=== PATIENT | female | born 1935 | race American Indian/Alaskan Native ===

== ENCOUNTER 2020-01-21 19:28 | Emergency (ER) | payer MEDICARE ==
--- NOTE | 2020-01-21 20:53 | Emergency Department Report ---
HPI - General Chief Complaint: Altered Mental Status Time Seen by Provider: 01/21/20 20:11 - HPI HPI: 84-year-old -[place] female presents to the emergency department from home via EMS after the daughter felt that the patient was having some altered mental status. She finished her home physical therapy appointment and the patient was eating dinner. The daughter says that she was not eating much and she seemed less responsive and was talking less. The daughter said to her "if you do not respond to me I am going to call 911" and then the patient thought she was in agreement with this. EMS arrived and found the patient to have some low blood pressure, 80/50. The patient appeared to go back to her normal responsiveness upon EMS arrival and asked why she was being transported to the hospital. During my examination the patient says that she last remembers watching television prior to dinner. However she says that she does not want to be here and wants to go home. The patient has no complaints at this time. She is currently AAO x2-3. Patient does have a history of dementia. She also has a history of diabetes and was here about 1 month ago for DKA. She had a blood sugar of 180 via Accu-Chek in route. Patient has a history of hypertension for which she is on Benicar. ED Past Medical Hx - Past Medical History Previous Medical History?: Yes Hx Heart Attack/AMI: Yes (has stents??) Hx Diabetes: Yes Hx Kidney Stones: Yes (ckd) Hx Dementia: Yes (early stages Alzheimers) - Surgical History Past Surgical History?: Yes Additional Surgical History: Double hip replacement - Social History Smoking Status: Never Smoker Substance Use Type: None - Medications Home Medications: Home Medications Medication Instructions Recorded Confirmed Last Taken Type AtorvaSTATin 40 mg PO DAILY 12/23/19 12/23/19 Unknown History Eliquis 1 mg PO DAILY 12/23/19 12/23/19 Unknown History Gabapentin 300 mg PO TID 12/23/19 12/23/19 Unknown History Glimepiride 4 mg PO BID 12/23/19 12/23/19 Unknown History Isosorbide Mononitrate 30 mg PO DAILY 12/23/19 12/23/19 Unknown History Januvia 50 mg PO DAILY 12/23/19 12/23/19 Unknown History carvediloL 6.25 mg PO BID 12/23/19 12/23/19 Unknown History metFORMIN [Glucophage] 500 mg PO BID #60 tablet 12/26/19 Unknown Rx Blood Pressure Test Kit-Large 1 each PRN PRN #1 kit 01/21/20 Unknown Rx [Blood Pressure Monitor] ED Review of Systems ROS: Stated complaint: AMS Other details as noted in HPI Comment: All other systems reviewed and negative Constitutional: denies: chills, fever Eyes: denies: eye pain, vision change ENT: denies: ear pain, throat pain Respiratory: denies: cough, shortness of breath Cardiovascular: denies: chest pain, palpitations Gastrointestinal: denies: abdominal pain, vomiting Genitourinary: denies: dysuria, discharge Musculoskeletal: denies: back pain, arthralgia Skin: denies: rash, lesions Neurological: denies: headache, numbness Physical Exam - Physical Exam Vital Signs: Vital Signs 01/21/20 19:39 Pulse Rate 87 Respiratory 14 Rate Blood Pressure 187/83 [left arm] O2 Sat by Pulse 95 Oximetry Physical Exam: GENERAL: The patient is well-developed well-nourished. HENT: Normocephalic. Atraumatic. Patient has moist mucous membranes. EYES: Extraocular motions are intact. Pupils equal reactive to light bilaterally. NECK: Supple. Trachea is midline. CHEST/LUNGS: Clear to auscultation. There is no respiratory distress noted. HEART/CARDIOVASCULAR: Regular. There is no tachycardia. ABDOMEN: Abdomen is soft, nontender. Patient has normal bowel sounds. There is no abdominal distention. SKIN: Skin is warm and dry. NEURO: The patient is awake, alert. Cranial nerves II through XII grossly intact. Normal speech. No pronator drift. MUSCULOSKELETAL: There is no tenderness or deformity. There is no evidence of acute injury. ED Course Vital Signs 01/21/20 19:39 Pulse Rate 87 Respiratory 14 Rate Blood Pressure 187/83 [left arm] O2 Sat by Pulse 95 Oximetry - Reevaluation(s) Reevaluation #1: 01/21/20 20:54 I had a very long conversation with the patient's daughter, whose name is also Dali. The daughter explained to me what happened prior to arrival and the reason for calling EMS. I explained to the patient's daughter that the patient is refusing any cardiac monitoring, EKG, blood draw, imaging, essentially any testing whatsoever. I also explained that if we were to try and get some of this testing completed, that the patient would need some type of chemical sedation. The patient's daughter says that she does not want the patient to receive any chemical sedation or any medication at this time. I discussed some possible differential diagnosis that could have caused this patient's symptoms including worsening of her dementia, TIA/CVA, electrolyte abnormalities, dysrhythmia. The daughter understands but says that she would prefer that the patient just be discharged home instead of undergoing sedation and testing at this time. The patient will be sent back to her daughter's house, and the daughter understands that if there is any change or any concern that she should once again call 911 and get her to the closest emergency department. ED Medical Decision Making - Medical Decision Making This patient was brought in for an evaluation after she appeared to have some type of transient altered mental status or an unresponsive episode, but the patient never lost consciousness. Since being in the emergency department the patient has been awake and alert. She is AAO x2-3 as she is oriented to person, place and the year, but not the month. The patient does have a history of dementia. The patient had an Accu-Chek done in route with EMS that was about 180. Otherwise, when she arrived in the emergency department, the patient is unwilling to have blood drawn, remain on the monitor, have an EKG done, or essentially allow any testing. Her vital signs were stable upon arrival including being afebrile. I spoke with the patient's daughter regarding the patient being uncooperative. The daughter understands that if we were going to get any testing done, then it would require chemical sedation. The daughter does not want us to do this and would prefer for the patient to return home. The daughter does understand that I am unable to give her any definitive diagnosis or explain why she had the transient altered mental status or unresponsive episode without the testing being done. The daughter is in agreement with this plan. She also agrees that she will call 911, or return the patient to the closest emergency department, if there is any further changes or signs of acute distress. The patient herself has repeatedly said that she wants to be discharged home. The patient was seen ambulatory with a walker and says that she feels stable and is at her baseline ability. Critical Care Time: No Critical care attestation.: If time is entered above; I have spent that time in minutes in the direct care of this critically ill patient, excluding procedure time. ED Disposition Clinical Impression: History of dementia, Elevated blood pressure reading, Unresponsive episode Disposition: DC-01 TO HOME OR SELFCARE Is pt being admited?: No Condition: Stable Instructions: Hypertension (ED) Additional Instructions: Please follow-up with a primary care physician in the next few days. Monitor her blood pressure multiple times per day. Please call 911 and return to the closest emergency department with any change in mental status, unresponsive episodes, development of chest pain or shortness of breath, or with any acute distress. Prescriptions: Blood Pressure Test Kit-Large [Blood Pressure Monitor] 1 each MC PRN PRN #1 kit PRN Reason: Blood Pressure Referrals: SINTIA HILL MD [Staff Physician] - 2-3 Days SHELDON TEE MD [Staff Physician] - 2-3 Days Time of Disposition: 20:59
[2020-01-21 22:43] VITALS: BP 191/78
== END 2020-01-21 23:23 | disposition home or self-care (01) ==
LOC: ED 19:28
DX: R03.0 Elevated blood-pressure reading, without diagnosis of hypertension (principal); F03.90 Unspecified dementia, unspecified severity, without behavioral disturbance, psychotic disturbance, mood disturbance, and anxiety; E11.22 Type 2 diabetes mellitus with diabetic chronic kidney disease; N18.9 Chronic kidney disease, unspecified; I25.2 Old myocardial infarction; Z95.5 Presence of coronary angioplasty implant and graft; Z79.899 Other long term (current) drug therapy; Z98.890 Other specified postprocedural states

== ENCOUNTER 2020-03-04 08:13 | Observation (INO) | payer MEDICARE ==
[2020-03-04] MEDS ORDERED: DEXTROSE 50% IN WATER (25GM) 50 ML SYRINGE IV ONE ×2 (08:42→10:02)
--- NOTE | 2020-03-04 08:51 | Emergency Department Report ---
ED Neuro Deficit HPI - General Chief Complaint: Altered Mental Status Stated Complaint: WEAKNESS Time Seen by Provider: 03/04/20 08:19 Source: family, EMS Mode of arrival: Stretcher - History of Present Illness Initial Comments: [facility] TeleStroke Metrics: LKW: 0000 Door Time: 0813 [facility] Contacted: 0821 [facility] at Bedside: 0825 NIHSS: 0833 Decision on Alteplase: Not to give as her last known well time is greater than 4.5 hours prior to her presentation. Interventional Candidate: Not a candidate as her symptoms are not consistent with a large vessel proximal occlusion. Chief Complaint: Altered mental status and hypoglycemia HPI: Asked to see this patient in emergent telemedicine consultation utilizing interactive audio and video technologies. Consultation was performed with assistance of ancillary / medical staff at bedside. Verbal consent to perform the examination with telemedicine was obtained. Killian hwang agreed to proceed with the consultation for acute stroke protocol. 84-year-old right-handed -[place]ien female who comes to the emergency room by EMS as a stroke alert for altered mental status and unresponsiveness. Patient's daughter is at bedside. Daughter states that the patient had a stroke about 2 years ago but she does not remember what her symptoms were. Patient also has a history of coronary stents. However, daughter states the patient is not on any aspirin or blood thinners currently. Patient normally lives in [place] with her . She apparently in November 2019 had an admission for diabetic coma where her blood sugar was greater than 600. Patient has been staying with her daughter since her November admission. Patient normally ambulates with a walker or cane at baseline. Patient went to bed around midnight at her baseline. At 6:30 AM, daughter had found the patient in her bed kicking her feet and making odd noises. She was not responding to her at all. She checked her blood sugar, and it was less than 30. EMS was called. They gave her an amp of D50. Her blood sugar improved to around 132. Currently on examination, the patient is awake but is slow to respond. She is able to tell us her name and date of . She recognizes her daughter at bedside. She is globally weak mostly in her legs. Head CT showed no acute findings. Repeat blood sugar in the emergency room is back down to 61. Daughter did mention that the patient has had low blood sugars over the last 1 week. Patient is complaining of being very cold. PMH: Diabetes mellitus, hypertension, coronary artery disease with prior coronary stents, and a prior stroke 2 years ago SOC: Negative x3. Patient is and typically lives with her in [place]. She has been living with her daughter since her November 2019 admission for DKA. She ambulates with a walker or cane at baseline. FMH: Other daughter with a stroke before. ROS: 13 point review of systems were reviewed with the patient and family, and are all negative with the exception of the aforementioned in the history of present illness. VS: Temperature 97.9 F, blood pressure 191/87, oxygen saturation 100% Exam: Patient is in no apparent distress. Patient appears as stated age. No obvious acute respiratory or cardiac distress. Patient is well groomed and well-nourished. 1a- LOC: Keenly responsive - 0 1b- LOC questions: Answers both questions correctly - 0 1c- LOC commands- Performs both tasks correctly- 0 2- Gaze: Normal; no gaze paresis or gaze deviation - 0 3- Visual Garcia: normal, no Visual field deficit - 0 4- Facial movements: no facial palsy - 0 5- Upper limb motor bilateral arm drifts - 2 6- Lower limb motor bilateral leg drifts - 6 7- Limb Coordination: absent ataxia - 0 8- Sensory: no sensory loss - 0 9- Language - No aphasia - 0 10- Speech - Mild dysarthria - 1 11- Neglect / Extinction - none found - 0 NIHSS score: 9 Diagnostic Data: CT head showed no acute intracranial hemorrhage, mass, or large territory stroke. Initial EMS blood sugar was 132. Repeat blood sugar in the emergency room is 61. Medical Data Reviewed: 1.Data reviewed include clinical labs, radiology, and medical tests; 2.Tests results discussed w/performing or interpreting physician; 3.Obtaining/reviewing old medical records; 4.Obtaining case history from another source; 5.Independent review of image, tracing, or specimen. Medical Decision Making: - Extensive number of diagnosis or management options are considered below. - Extensive amount of complex data reviewed. - High risk of complication and/or morbidity or mortality are associated with differential diagnostic considerations below. - There may be?uncertain?outcome and increased probability of prolonged functional impairment or high probability of severe prolonged functional impairment associated with some of these differential diagnosis. Differential Diagnosis for Stroke: 1.?Cardioembolic?stroke 2. Small vessel disease/lacune 3. Thromboembolic, [id number] mechanism 4.?Hypercoagulable?state-related infarct 5. Transient ischemic attack 6. Thrombotic mechanism, large artery disease Assessment: 1. Acute metabolic encephalopathy likely due to persistent hypoglycemia 2. Diabetes mellitus 3. Hypertension 4. Prior stroke 2 years ago 5. Coronary artery disease with prior coronary stents Recommendations: Patient can be admitted to the hospital for further work-up of her symptoms. Metabolic and infectious work-up per primary team. Start the patient on a baby aspirin given her cardiac and stroke histories. If the patient does not improve within the next 24 hours, then can check MRI brain without contrast to rule out any acute intracranial process. Maintain the patient on telemetry to look for paroxysmal atrial fibrillation. Check echocardiogram to gauge her cardiac function. Check carotid ultrasound. Check hemoglobin A1c and lipid panel. Consult PT, OT, and ST. Continue supportive care. Plan of care was discussed with the patient's daughter. Thank you for allowing [facility] to participate in the care of your patient. Please call me, Dr. Cintron, with any questions at [phone]. Case discussed with the ER staff and Dr. Mancilla. Critical Care notation: I was called to see this critical patient emergently. I personally evaluated this critical patient for acute stroke evaluation, and determining their eligibility for IV Alteplase and interventional therapies. I have spent approximately 13 minutes with the patient, including time at bedside, time discussing the case with other physicians, reviewing plan of care, and time independently reviewing the records and scans. - Related Data Home Medications: Home Medications Medication Instructions Recorded Confirmed Last Taken AtorvaSTATin 40 mg PO DAILY 12/23/19 12/23/19 Unknown Eliquis 1 mg PO DAILY 12/23/19 12/23/19 Unknown Gabapentin 300 mg PO TID 12/23/19 12/23/19 Unknown Glimepiride 4 mg PO BID 12/23/19 12/23/19 Unknown Isosorbide Mononitrate 30 mg PO DAILY 12/23/19 12/23/19 Unknown Januvia 50 mg PO DAILY 12/23/19 12/23/19 Unknown carvediloL 6.25 mg PO BID 12/23/19 12/23/19 Unknown Previous Rx's Medication Instructions Recorded Last Taken Type metFORMIN [Glucophage] 500 mg PO BID #60 tablet 12/26/19 Unknown Rx Blood Pressure Test Kit-Large 1 each PRN PRN #1 kit 01/21/20 Unknown Rx [Blood Pressure Monitor] Allergies/Adverse Reactions: Allergies Allergy/AdvReac Type Severity Reaction Status Date / Time No Known Drug Allergies Allergy Unknown Verified 12/22/19 23:03 ED Review of Systems ROS: Stated complaint: WEAKNESS Other details as noted in HPI ED Past Medical Hx - Past Medical History Hx Heart Attack/AMI: Yes (has stents??) Hx Diabetes: Yes Hx Kidney Stones: Yes (ckd) Hx Dementia: Yes (early stages Alzheimers) - Surgical History Additional Surgical History: Double hip replacement - Social History Smoking Status: Never Smoker Substance Use Type: None - Medications Home Medications: Home Medications Medication Instructions Recorded Confirmed Last Taken Type AtorvaSTATin 40 mg PO DAILY 12/23/19 12/23/19 Unknown History Eliquis 1 mg PO DAILY 12/23/19 12/23/19 Unknown History Gabapentin 300 mg PO TID 12/23/19 12/23/19 Unknown History Glimepiride 4 mg PO BID 12/23/19 12/23/19 Unknown History Isosorbide Mononitrate 30 mg PO DAILY 12/23/19 12/23/19 Unknown History Januvia 50 mg PO DAILY 12/23/19 12/23/19 Unknown History carvediloL 6.25 mg PO BID 12/23/19 12/23/19 Unknown History metFORMIN [Glucophage] 500 mg PO BID #60 tablet 12/26/19 Unknown Rx Blood Pressure Test Kit-Large 1 each PRN PRN #1 kit 01/21/20 Unknown Rx [Blood Pressure Monitor] ED Neuro Physical Exam - General Suspected Stroke: No Critical care attestation.: If time is entered above; I have spent that time in minutes in the direct care of this critically ill patient, excluding procedure time. ED Disposition Clinical Impression: Acute metabolic encephalopathy Disposition: OP ADMIT IP TO THIS HOSP Is pt being admited?: Yes Does the pt Need Aspirin: Yes Condition: Stable Referrals: PRIMARY CARE, [Primary Care Provider] - 3-5 Days
[2020-03-04 10:27] LABS: Free T4 (Free Thyroxine) 0.97 ng/dL (0.76-1.46)
[2020-03-04 10:47] LABS: Basophils % (Auto) 0.6 % (0.0-1.8); Eosinophils # (Auto) 0.2 K/mm3 (0.0-0.4); Eosinophils % (Auto) 3.6 % (0.0-4.3); Hematocrit 31.6 % (30.3-42.9); Hemoglobin 10.4 gm/dl (10.1-14.3); Lymphocytes # (Auto) 1.5 K/mm3 (1.2-5.4); Lymphocytes % (Auto) 29.5 % (13.4-35.0); Mean Corpuscular HGB Conc 33 % (30-34); Mean Corpuscular Volume 92 fl (79-97); Monocytes # (Auto) 0.4 K/mm3 (0.0-0.8); Platelet Count 193 K/mm3 (140-440); Red Blood Count 3.43 M/mm3 (3.65-5.03); Red Cell Distribution Width 18.3 % (13.2-15.2)
[2020-03-04 10:57] LABS: INR 1.32 (0.87-1.13)
[2020-03-04 10:58] LABS: Partial Thromboplastin Time 28.2 Sec. (24.2-36.6)
[2020-03-04 11:12] LABS: Creatine Kinase MB 1.5 ng/mL (0.0-4.0)
[2020-03-04 11:13] LABS: Albumin 3.1 g/dL (3.9-5); Calcium 9.2 mg/dL (8.4-10.2)
--- NOTE | 2020-03-04 11:18 | Emergency Department Report ---
HPI - General Chief Complaint: Altered Mental Status PUI?: No Time Seen by Provider: 03/04/20 08:19 - HPI HPI: Room 1 The patient is an 84-year-old female present with a chief complaint of altered mental status. Patient's daughter states that the patient was snoring in an abnormal manner and had weird movements with her legs so she attempted to wake her but the patient was unresponsive. The daughter states she attempted to put lemonade in the patient's mouth but she did not improve and still would not respond. EMS was called and found the patient to be hypoglycemic to 32. Patient was given 1 amp of D50 with blood sugar increased to 132. Upon arrival to the ED the patient was still unresponsive and was found that her blood sugar had again dropped to approximately 60. Patient was administered another amp of D50 and is now alert and oriented. Patient states she does not remember what happened earlier. Patient states she ate dinner last night at approximately 20: 00. Patient states she had taken her last diabetes medication at approximately 19: 00 yesterday ED Past Medical Hx - Past Medical History Previous Medical History?: Yes Hx Heart Attack/AMI: Yes (has stents??) Hx Diabetes: Yes Hx Kidney Stones: Yes (ckd) Hx Dementia: Yes (early stages Alzheimers) - Surgical History Past Surgical History?: Yes Additional Surgical History: Double hip replacement - Family History Family history: no significant - Social History Smoking Status: Never Smoker Substance Use Type: None - Medications Home Medications: Home Medications Medication Instructions Recorded Confirmed Last Taken Type AtorvaSTATin 40 mg PO DAILY 12/23/19 03/04/20 Unknown History Eliquis 5 mg PO DAILY 12/23/19 03/04/20 Unknown History Gabapentin 300 mg PO TID 12/23/19 03/04/20 Unknown History Glimepiride 2 mg PO BID 12/23/19 03/04/20 Unknown History Isosorbide Mononitrate 30 mg PO DAILY 12/23/19 03/04/20 Unknown History Januvia 100 mg PO DAILY 12/23/19 03/04/20 Unknown History carvediloL 6.25 mg PO BID 12/23/19 03/04/20 Unknown History Blood Pressure Test Kit-Large 1 each PRN PRN #1 kit 01/21/20 03/04/20 Unknown Rx [Blood Pressure Monitor] ED Review of Systems ROS: Stated complaint: WEAKNESS Other details as noted in HPI Constitutional: no symptoms reported Eyes: denies: eye pain ENT: denies: throat pain Respiratory: no symptoms reported Cardiovascular: denies: chest pain Endocrine: no symptoms reported Gastrointestinal: denies: abdominal pain Neurological: confusion. denies: headache Physical Exam - Physical Exam Vital Signs: Vital Signs 03/04/20 03/04/20 03/04/20 08:33 08:46 08:50 Temperature 97.9 F Pulse Rate 87 Respiratory 13 Rate Blood Pressure 191/87 O2 Sat by Pulse 99 100 Oximetry 03/04/20 09:00 Temperature Pulse Rate 90 Respiratory 11 L Rate Blood Pressure 151/88 O2 Sat by Pulse 98 Oximetry Physical Exam: GENERAL: The patient is well-developed well-nourished female lying on stretcher not appearing to be in acute distress. [] HEENT: Normocephalic. Atraumatic. Extraocular motions are intact. Patient has moist mucous membranes. NECK: Supple. Trachea midline CHEST/LUNGS: Clear to auscultation. There is no respiratory distress noted. HEART/CARDIOVASCULAR: Regular. There is no tachycardia. There is no gallop rub or murmur. ABDOMEN: Abdomen is soft, nontender. Patient has normal bowel sounds. There is no abdominal distention. SKIN: There is no rash. There is no edema. There is no diaphoresis. NEURO: The patient is awake, alert, and oriented. The patient is cooperative. The patient has no focal neurologic deficits. The patient has normal speech. Cranial nerves II through XII grossly intact MUSCULOSKELETAL: There is no evidence of acute injury. ED Course Vital Signs 03/04/20 03/04/20 03/04/20 08:33 08:46 08:50 Temperature 97.9 F Pulse Rate 87 Respiratory 13 Rate Blood Pressure 191/87 O2 Sat by Pulse 99 100 Oximetry 03/04/20 09:00 Temperature Pulse Rate 90 Respiratory 11 L Rate Blood Pressure 151/88 O2 Sat by Pulse 98 Oximetry ED Medical Decision Making - Lab Data Result diagrams: 03/04/20 10:15 03/04/20 10:15 Laboratory Tests 03/04/20 03/04/20 03/04/20 08:51 09:20 09:20 WBC RBC Hgb Hct MCV MCH MCHC RDW Plt Count Lymph % (Auto) [place] % (Auto) Eos % (Auto) Baso % (Auto) Lymph # [place] # Eos # Baso # Seg Neutrophils % Seg Neutrophils # PT INR APTT Sodium Potassium Chloride Carbon Dioxide Anion Gap BUN Creatinine Estimated GFR BUN/Creatinine Ratio Glucose POC Glucose 61 L Calcium Total Bilirubin AST ALT Alkaline Phosphatase Ammonia Total Creatine Kinase CK-MB (CK-2) CK-MB (CK-2) Rel Index Troponin T Total Protein Albumin Albumin/Globulin Ratio TSH 0.244 L Free T4 0.97 Plasma/Serum Alcohol < 0.01 03/04/20 03/04/20 03/04/20 10:15 10:15 10:15 WBC 5.1 RBC 3.43 L Hgb 10.4 Hct 31.6 MCV 92 MCH 30 MCHC 33 RDW 18.3 H Plt Count 193 Lymph % (Auto) 29.5 [place] % (Auto) 8.0 H Eos % (Auto) 3.6 Baso % (Auto) 0.6 Lymph # 1.5 [place] # 0.4 Eos # 0.2 Baso # 0.0 Seg Neutrophils % 58.3 Seg Neutrophils # 3.0 PT 16.1 H INR 1.32 H APTT 28.2 Sodium 145 Potassium 3.9 Chloride 109.4 H Carbon Dioxide 23 Anion Gap 17 BUN 20 H Creatinine 1.1 Estimated GFR 58 BUN/Creatinine Ratio 18 Glucose 163 H POC Glucose Calcium 9.2 Total Bilirubin 0.40 AST 25 ALT 16 Alkaline Phosphatase 94 Ammonia Total Creatine Kinase 116 CK-MB (CK-2) 1.5 CK-MB (CK-2) Rel Index 1.2 Troponin T 0.011 Total Protein 6.2 L Albumin 3.1 L Albumin/Globulin Ratio 1.0 TSH Free T4 Plasma/Serum Alcohol 03/04/20 03/04/20 10:15 10:56 WBC RBC Hgb Hct MCV MCH MCHC RDW Plt Count Lymph % (Auto) [place] % (Auto) Eos % (Auto) Baso % (Auto) Lymph # [place] # Eos # Baso # Seg Neutrophils % Seg Neutrophils # PT INR APTT Sodium Potassium Chloride Carbon Dioxide Anion Gap BUN Creatinine Estimated GFR BUN/Creatinine Ratio Glucose POC Glucose 139 H Calcium Total Bilirubin AST ALT Alkaline Phosphatase Ammonia 25.0 Total Creatine Kinase CK-MB (CK-2) CK-MB (CK-2) Rel Index Troponin T Total Protein Albumin Albumin/Globulin Ratio TSH Free T4 Plasma/Serum Alcohol - Radiology Data Radiology results: report reviewed (CT head), image reviewed (CT head) Findings [facility] [address] [place] [address] Cat Scan Report Signed Patient: YESIKA PHAN MR#: [id number] : 1935 Acct:[id number] Age/Sex: 84 / F ADM Date: 03/04/20 Loc: ED Attending Dr: Ordering Physician: MISSAEL BAUTISTA MD Date of Service: 03/04/20 Procedure(s): CT head/brain wo con Accession Number(s): [id number] cc: MISSAEL BAUTISTA MD NONENHANCED CT SCAN OF THE BRAIN: INDICATION: MAIN: Altered mental status, hypertension STROKE PROTOCOL [phone]. TECHNIQUE: Routine CT head without contrast. Sagittal and coronal reformatted images were obtained. All CT scans at this location are performed using CT dose reduction for ALARA by means of automated exposure control. COMPARISON: None. FINDINGS: BRAIN / INTRACRANIAL CONTENTS: Hemorrhage:No intracranial hemorrhage; no subarachnoid hemorrhage Stroke mimics: None Acute/subacute territorial infarction: Khanna-white matter interface: No blurring; normal Insular cortex: Normal Basal ganglia: Normal Wedge shaped parenchymal low density area: Not present Cortical sulci: Not effaced Lacunar infarctions: No acute lacunar infarction Vasculopathy: Dense middle cerebral artery sign: Not present Internal carotid artery terminus: Normal Basilar artery:Normal Middle cerebral artery branches in the sylvian fissure (Dot sign): One of the right middle cerebral artery branches with slightly increased CT density probably due to calcification. Calcified embolus: Not present ASPECT score: Not applicable Chronic lesions: Chronic ischemic lesions are seen in the putamen bilaterally White matter: Periventricular confluent low-attenuation areas are seen. Focal low-attenuation white matter le sions are also seen. These are due to chronic small vessel disease. Craniocervical junction:No significant abnormality Orbits:No significant abnormality Paranasal sinuses/mastoids:No significant abnormality Additional findings: None IMPRESSION: No intracerebral hemorrhage; no stroke mimics No acute or subacute subacute infarction This exam was performed as part of a code stroke protocol. The exam was completed on 03/04/2020 7:38 AM. The exam was reviewed at 7:46 AM Central daylight saving time and ER physician was notified at 7:40 AM. Signer Name: Joy Castrejon MD Signed: 03/04/2020 8:52 AM Workstation Name: [email or web address] Transcribed By: BS Dictated By: Joy Santiago MD Electronically Authenticated By: Joy Santiago MD Signed Date/Time: 03/04/20851 DD/ 7 TD/TT: - Differential Diagnosis ICH, hypoglycemia Critical care attestation.: If time is entered above; I have spent that time in minutes in the direct care of this critically ill patient, excluding procedure time. ED Disposition Clinical Impression: Hypoglycemia, Altered mental status Disposition: DC-09 OP ADMIT IP TO THIS HOSP Is pt being admited?: Yes Does the pt Need Aspirin: No Condition: Fair Referrals: PRIMARY CARE, [Primary Care Provider] - 3-5 Days Time of Disposition: 11:21 (Hospitalist paged)
[2020-03-04] MEDS ORDERED: DEXTROSE 50% IN WATER (25GM) 50 ML SYRINGE IV PRN (16:33)
[2020-03-04] MEDS ORDERED: hydrALAZINE 20 MG/1 ML INJ IV PRN (18:47)
[2020-03-04] MEDS ORDERED: hydrALAZINE 20 MG/1 ML INJ IV ONE (18:47)
[2020-03-04] MEDS: carvediloL 6.25 MG TAB PO SCH ×2 (18:56→21:04)
[2020-03-04] MEDS ORDERED: NON-FORMULARY EACH (Carvedilol 6.25 MG) PO SCH (22:00)
[2020-03-04] MEDS: GABAPENTIN 300 MG CAP PO SCH (22:13)
[2020-03-04] MEDS: hydrALAZINE 25 MG TAB PO SCH (22:13)
[2020-03-05] MEDS: INSULIN LISPRO 100 UNIT/ML SUB-Q SCH ×5 (01:35→21:58)
[2020-03-05 06:10] LABS: BUN/Creatinine Ratio 21; Blood Urea Nitrogen 21 mg/dL (7-17); Calcium 9.2 mg/dL (8.4-10.2); Hemolysis Index 9
[2020-03-05] MEDS: hydrALAZINE 25 MG TAB PO SCH ×2 (06:37→13:19)
[2020-03-05] MEDS: GABAPENTIN 300 MG CAP PO SCH ×3 (09:22→21:57)
[2020-03-05] MEDS: carvediloL 6.25 MG TAB PO SCH ×2 (09:22→21:58)
[2020-03-05] MEDS ORDERED: NON-FORMULARY EACH (Eliquis 5 MG) PO SCH (10:00)
[2020-03-05] MEDS ORDERED: NON-FORMULARY EACH (Atorvastatin 40 MG) PO SCH (10:00)
[2020-03-05] MEDS ORDERED: APIXABAN 5 MG TAB PO SCH (10:00)
[2020-03-05] MEDS ORDERED: NON-FORMULARY EACH (Isosorbide Mononitrate 30 MG) PO SCH (10:00)
[2020-03-05] MEDS: APIXABAN 2.5 MG TAB PO SCH (21:57)
[2020-03-06] MEDS: INSULIN LISPRO 100 UNIT/ML SUB-Q SCH ×3 (07:33→17:10)
[2020-03-06] MEDS: APIXABAN 2.5 MG TAB PO SCH (10:01)
[2020-03-06] MEDS: carvediloL 6.25 MG TAB PO SCH (10:01)
[2020-03-06] MEDS: GABAPENTIN 300 MG CAP PO SCH (10:02)
[2020-03-06 17:14] VITALS: BP 140/67
== END 2020-03-06 17:25 | disposition home health service (06) ==
LOC: ED 08:13 → 3A 11:22
PROVIDERS: ADMIT Internal Medicine; ATTEND Internal Medicine
DX: G93.41 Metabolic encephalopathy (principal); E11.649 Type 2 diabetes mellitus with hypoglycemia without coma; R41.82 Altered mental status, unspecified; I10 Essential (primary) hypertension; E78.5 Hyperlipidemia, unspecified; I25.10 Atherosclerotic heart disease of native coronary artery without angina pectoris; E11.40 Type 2 diabetes mellitus with diabetic neuropathy, unspecified; F03.90 Unspecified dementia, unspecified severity, without behavioral disturbance, psychotic disturbance, mood disturbance, and anxiety; E44.1 Mild protein-calorie malnutrition; I25.2 Old myocardial infarction; Z86.73 Personal history of transient ischemic attack (TIA), and cerebral infarction without residual deficits; Z87.891 Personal history of nicotine dependence; Z96.643 Presence of artificial hip joint, bilateral; Z95.5 Presence of coronary angioplasty implant and graft; Z79.01 Long term (current) use of anticoagulants; Z79.84 Long term (current) use of oral hypoglycemic drugs; Z79.899 Other long term (current) drug therapy
CPT/HCPCS: 36415; 70450; 80048; 80053; 82140; 82550; 82553; 82962; 83735; 84439; 84443; 84484; 85025; 85610; 85730; 93005; 96374; 96375; 97116; 97161; 99285; A9270; G0378; J0360; 80320; G0480; J1815

== ENCOUNTER 2021-02-08 14:59 | Inpatient (IN) | payer MEDICARE ==
--- NOTE | 2021-02-08 15:10 | Emergency Department Report ---
ED General Adult HPI - General Chief complaint: Altered Mental Status Stated complaint: UNRESPONSIVE PUI?: No Time Seen by Provider: 02/08/21 15:07 Source: patient, EMS (Verbal report received from emergency medical services. EMS documentation not available at time of chart dictation ), RN notes reviewed, old records reviewed Mode of arrival: Stretcher Limitations: Altered Mental Status - History of Present Illness Initial comments: The patient was evaluated in the emergency department for symptoms described in the history of present illness. He/she was evaluated in the context of the global COVID-19 pandemic, which necessitated consideration that the patient might be at risk for infection with the virus that causes COVID-19. Institutional protocols and algorithms that pertain to the evaluation of patients at risk for COVID-19 are in a state of rapid change based on information released by regulatory bodies including the CDC and federal and state organizations. These policies and algorithms were followed during the patient's care in the emergency department. Please note that these policies, procedures and recommendations changed on a rapid basis. This is an 85-year-old female. Her past medical history includes diabetes, dementia, coronary artery disease, vasomotor nephropathy, diabetic ketoacidosis ICD in situ She is brought to the hospital today by emergency medical services with an EMS articulated complaint of altered mental status. Patient altered, and denies complaints, simply states "I want to go to school." EMS reports that they were contacted because the patient was found in bed, "acting differently." EMS reports normal vital signs in the field and normal Accu-Chek in the field. EMS states family was unable to clarify patient specific last known well time. It is not known if the patient's last known well time was at 9:00 AM, or she was found at 9:00 AM. EMS stated that the patient was unresponsive in the field with normal Accu-Chek and normal vital signs. Upon arrival to this emergency room the patient is initially awake, breathing spontaneously, but not responsive. Then, she becomes responsive. She tells me that she is not having any physical pain. She does not know where she is. She simply states "I need to go to school." The patient is not currently accompa nied by friends or family at this time for additional information or collateral information. -: unknown Quality: other Consistency: other Improves with: other Worsens with: other Associated Symptoms: other - Related Data Home Medications Medication Instructions Recorded Confirmed Last Taken AtorvaSTATin 40 mg PO DAILY 12/23/19 03/04/20 Unknown Isosorbide Mononitrate 30 mg PO DAILY 12/23/19 03/04/20 Unknown carvediloL 6.25 mg PO BID 12/23/19 03/04/20 Unknown Previous Rx's Medication Instructions Recorded Last Taken Type Apixaban [Eliquis] 2.5 mg PO BID #60 tablet 03/06/20 Unknown Rx Allergies Allergy/AdvReac Type Severity Reaction Status Date / Time No Known Drug Allergies Allergy Unknown Verified 12/22/19 23:03 ED Review of Systems ROS: Stated complaint: UNRESPONSIVE Other details as noted in HPI Comment: Unobtainable due to pts medical conditions Constitutional: weakness Cardiovascular: denies: chest pain Gastrointestinal: denies: abdominal pain Neurological: weakness, confusion. denies: headache ED Past Medical Hx - Past Medical History Hx Heart Attack/AMI: Yes (has stents??) Hx Diabetes: Yes Hx Kidney Stones: Yes (ckd) Hx Dementia: Yes (early stages Alzheimers) - Surgical History Additional Surgical History: Double hip replacement - Social History Smoking Status: Never Smoker - Medications Home Medications: Home Medications Medication Instructions Recorded Confirmed Last Taken Type AtorvaSTATin 40 mg PO DAILY 12/23/19 03/04/20 Unknown History Isosorbide Mononitrate 30 mg PO DAILY 12/23/19 03/04/20 Unknown History carvediloL 6.25 mg PO BID 12/23/19 03/04/20 Unknown History Apixaban [Eliquis] 2.5 mg PO BID #60 tablet 03/06/20 Unknown Rx ED Physical Exam - General Limitations: Altered Mental Status, Physical Limitation General appearance: alert, in no apparent distress - Head Head exam: Present: atraumatic, normocephalic - Eye Eye exam: Present: normal appearance, EOMI. Absent: nystagmus - ENT ENT exam: Present: normal exam, normal orophraynx, mucous membranes moist, normal external ear exam - Neck Neck exam: Present: normal inspection, full ROM. Absent: tenderness, meningismus - Respiratory Respiratory exam: Present: normal lung sounds bilaterally. Absent: respiratory distress, wheezes, rales, rhonchi, stridor, decreased breath sounds - Cardiovascular Cardiovascular Exam: Present: regular rate, normal rhythm, normal heart sounds. Absent: bradycardia, tachycardia, irregular rhythm, systolic murmur, diastolic murmur, rubs, gallop - GI/Abdominal GI/Abdominal exam: Present: soft. Absent: distended, tenderness, guarding, rebound, rigid, pulsatile mass - External exam: Present: normal external exam - Extremities Exam Extremities exam: Present: normal inspection, full ROM, other (2+ pulses noted in the bilateral upper and lower extremities. There is no palpable cord. negative Homans sign. Muscular compartments are soft. The pelvis is stable.). Absent: calf tenderness - Back Exam Back exam: Present: normal inspection. Absent: tenderness, CVA tenderness (R), CVA tenderness (L), paraspinal tenderness, vertebral tenderness - Neurological Exam Neurological exam: Present: alert, altered, other (No facial droop. Tongue midline. Extraocular movements intact bilaterally. Facial sensation intact to light touch in V1, V2, V3 distribution bilaterally. 5 and a 5 strength in 4 extremities. Sensation intact to light touch in 4 extremities.) - Psychiatric Psychiatric exam: Present: flat affect - Skin Skin exam: Present: warm, dry, intact, normal color. Absent: rash ED Course Vital Signs 02/08/21 02/08/21 02/08/21 15:25 15:39 16:00 Temperature 98 F Pulse Rate 91 H 86 Respiratory 15 15 Rate Blood Pressure 195/93 175/83 O2 Sat by Pulse 98 100 100 Oximetry 02/08/21 02/08/21 02/08/21 16:30 17:00 17:30 Temperature Pulse Rate 87 95 H Respiratory 12 16 Rate Blood Pressure 172/84 183/90 158/75 O2 Sat by Pulse 100 99 100 Oximetry - Reevaluation(s) Reevaluation #1: 02/08/21 15:49 Differential diagnosis, including but not limited to: Toxic encephalopathy, metabolic encephalopathy, TIA, pneumonia, urinary tract infection, dementia Assessment and plan: 85-year-old female, who is afebrile rectally, with a rectal temperature of 98 degrees, presenting with resolving unresponsiveness. Patient is awake, protecting airway, pleasantly confused, moving 4 extremities, presents with a unknown last known well time, therefore, TPA not indicated, examination suggests NIH score of 3 for confusion, not suggestive of large vessel occlusion. We will obtain appropriate laboratory studies to evaluate for toxic metabolic pathology. CT scan of the brain is obtained, interpretation pending, x-ray of the chest is negative for acute findings. Urinalysis is pending at this time. Patient currently receiving neurology evaluation. Reassess after initial diagnostics have resulted. Anticipate admission once initial diagnostics have resulted. Reevaluation #2: 02/08/21 17:[address] scan of the brain negative for acute traumatic findings. Chronic findings noted. Aspirin ordered. Patient remains awake, protecting airway, moving 4 extremities. Neurology recommendations reviewed and appreciated. Urinalysis pending at this time. Hospital physician, Dr. Lane, to admit to the internal medicine service. Reevaluation #3: 02/08/21 17:57 Urinalysis is suggestive of urinary tract infection. Antibiotics ordered. - EJ/Peripheral Line Neck L Time Out Performed: Yes Indications: nurses unable to establis Skin Cleansed in Sterile Fashion: Yes Size: 22 Dressing Placed: Tegaderm Patient Tolerated Procedure: well ED Medical Decision Making - Lab Data Result diagrams: 02/08/21 15:44 02/08/21 15:44 Vital Signs 02/08/21 15:25 Temperature 98 F Pulse Rate 91 H Respiratory 15 Rate Blood Pressure 193/93 O2 Sat by Pulse 99 Oximetry Lab Results 02/08/21 02/08/21 02/08/21 Range/Units 15:44 15:44 15:44 WBC 3.8 L (4.5-11.0) K/mm3 RBC 3.54 L (3.65-5.03) M/mm3 Hgb 10.9 (10.1-14.3) gm/dl Hct 32.9 (30.3-42.9) % MCV 93 (79-97) fl MCH 31 (28-32) pg MCHC 33 (30-34) % RDW 14.2 (13.2-15.2) % Plt Count 221 (140-440) K/mm3 Lymph % (Auto) 40.3 H (13.4-35.0) % Gilchrist % (Auto) 10.5 H (0.0-7.3) % Eos % (Auto) 5.7 H (0.0-4.3) % Baso % (Auto) 1.0 (0.0-1.8) % Lymph # (Auto) 1.5 (1.2-5.4) K/mm3 Gilchrist # (Auto) 0.4 (0.0-0.8) K/mm3 Eos # (Auto) 0.2 (0.0-0.4) K/mm3 Baso # (Auto) 0.0 (0.0-0.1) K/mm3 Seg Neutrophils % 42.5 (40.0-70.0) % Seg Neutrophils # 1.6 L (1.8-7.7) K/mm3 PT 17.5 H (12.2-14.9) Sec. INR 1.45 H (0.87-1.13) APTT 34.1 (24.2-36.6) Sec. VBG pH (7.320-7.420) Sodium 138 (137-145) mmol/L Potassium 4.4 (3.6-5.0) mmol/L Chloride 105.0 (98-107) mmol/L Carbon Dioxide 26 (22-30) mmol/L Anion Gap 11 mmol/L BUN 17 (7-17) mg/dL Creatinine 0.9 (0.6-1.2) mg/dL Estimated GFR > 60 ml/min BUN/Creatinine Ratio 19 % Glucose 96 (65-100) mg/dL Lactic Acid (0.7-2.0) mmol/L Calcium 9.1 (8.4-10.2) mg/dL Magnesium (1.7-2.3) mg/dL Total Bilirubin 0.30 (0.1-1.2) mg/dL AST 28 (5-40) units/L ALT 23 (7-56) units/L Alkaline Phosphatase 108 (35-129) units/L Ammonia (25-60) umol/L Total Creatine Kinase (30-135) units/L Troponin T < 0.010 (0.00-0.029) ng/mL Total Protein 7.1 (6.3-8.2) g/dL Albumin 2.6 L (3.9-5) g/dL Albumin/Globulin Ratio 0.6 % Salicylates (2.8-20.0) mg/dL Acetaminophen (10.0-30.0) ug/mL Plasma/Serum Alcohol (0-0.07) % 02/08/21 02/08/21 02/08/21 Range/Units 15:44 15:44 15:44 WBC (4.5-11.0) K/mm3 RBC (3.65-5.03) M/mm3 Hgb (10.1-14.3) gm/dl Hct (30.3-42.9) % MCV (79-97) fl MCH (28-32) pg MCHC (30-34) % RDW (13.2-15.2) % Plt Count (140-440) K/mm3 Lymph % (Auto) (13.4-35.0) % Gilchrist % (Auto) (0.0-7.3) % Eos % (Auto) (0.0-4.3) % Baso % (Auto) (0.0-1.8) % Lymph # (Auto) (1.2-5.4) K/mm3 Gilchrist # (Auto) (0.0-0.8) K/mm3 Eos # (Auto) (0.0-0.4) K/mm3 Baso # (Auto) (0.0-0.1) K/mm3 Seg Neutrophils % (40.0-70.0) % Seg Neutrophils # (1.8-7.7) K/mm3 PT (12.2-14.9) Sec. INR (0.87-1.13) APTT (24.2-36.6) Sec. VBG pH (7.320-7.420) Sodium (137-145) mmol/L Potassium (3.6-5.0) mmol/L Chloride (98-107) mmol/L Carbon Dioxide (22-30) mmol/L Anion Gap mmol/L BUN (7-17) mg/dL Creatinine (0.6-1.2) mg/dL Estimated GFR ml/min BUN/Creatinine Ratio % Glucose (65-100) mg/dL Lactic Acid 1.00 (0.7-2.0) mmol/L Calcium (8.4-10.2) mg/dL Magnesium (1.7-2.3) mg/dL Total Bilirubin (0.1-1.2) mg/dL AST (5-40) units/L ALT (7-56) units/L Alkaline Phosphatase (35-129) units/L Ammonia 30.0 (25-60) umol/L Total Creatine Kinase (30-135) units/L Troponin T (0.00-0.029) ng/mL Total Protein (6.3-8.2) g/dL Albumin (3.9-5) g/dL Albumin/Globulin Ratio % Salicylates < 0.3 L (2.8-20.0) mg/dL Acetaminophen (10.0-30.0) ug/mL Plasma/Serum Alcohol (0-0.07) % 02/08/21 02/08/21 02/08/21 Range/Units 15:44 15:44 15:44 WBC (4.5-11.0) K/mm3 RBC (3.65-5.03) M/mm3 Hgb (10.1-14.3) gm/dl Hct (30.3-42.9) % MCV (79-97) fl MCH (28-32) pg MCHC (30-34) % RDW (13.2-15.2) % Plt Count (140-440) K/mm3 Lymph % (Auto) (13.4-35.0) % Gilchrist % (Auto) (0.0-7.3) % Eos % (Auto) (0.0-4.3) % Baso % (Auto) (0.0-1.8) % Lymph # (Auto) (1.2-5.4) K/mm3 Gilchrist # (Auto) (0.0-0.8) K/mm3 Eos # (Auto) (0.0-0.4) K/mm3 Baso # (Auto) (0.0-0.1) K/mm3 Seg Neutrophils % (40.0-70.0) % Seg Neutrophils # (1.8-7.7) K/mm3 PT (12.2-14.9) Sec. INR (0.87-1.13) APTT (24.2-36.6) Sec. VBG pH (7.320-7.420) Sodium (137-145) mmol/L Potassium (3.6-5.0) mmol/L Chloride (98-107) mmol/L Carbon Dioxide (22-30) mmol/L Anion Gap mmol/L BUN (7-17) mg/dL Creatinine (0.6-1.2) mg/dL Estimated GFR ml/min BUN/Creatinine Ratio % Glucose (65-100) mg/dL Lactic Acid (0.7-2.0) mmol/L Calcium (8.4-10.2) mg/dL Magnesium 2.00 (1.7-2.3) mg/dL Total Bilirubin (0.1-1.2) mg/dL AST (5-40) units/L ALT (7-56) units/L Alkaline Phosphatase (35-129) units/L Ammonia (25-60) umol/L Total Creatine Kinase 35 (30-135) units/L Troponin T (0.00-0.029) ng/mL Total Protein (6.3-8.2) g/dL Albumin (3.9-5) g/dL Albumin/Globulin Ratio % Salicylates (2.8-20.0) mg/dL Acetaminophen 5.0 L (10.0-30.0) ug/mL Plasma/Serum Alcohol < 0.01 (0-0.07) % 02/08/21 Range/Units 15:44 WBC (4.5-11.0) K/mm3 RBC (3.65-5.03) M/mm3 Hgb (10.1-14.3) gm/dl Hct (30.3-42.9) % MCV (79-97) fl MCH (28-32) pg MCHC (30-34) % RDW (13.2-15.2) % Plt Count (140-440) K/mm3 Lymph % (Auto) (13.4-35.0) % Gilchrist % (Auto) (0.0-7.3) % Eos % (Auto) (0.0-4.3) % Baso % (Auto) (0.0-1.8) % Lymph # (Auto) (1.2-5.4) K/mm3 Gilchrist # (Auto) (0.0-0.8) K/mm3 Eos # (Auto) (0.0-0.4) K/mm3 Baso # (Auto) (0.0-0.1) K/mm3 Seg Neutrophils % (40.0-70.0) % Seg Neutrophils # (1.8-7.7) K/mm3 PT (12.2-14.9) Sec. INR (0.87-1.13) APTT (24.2-36.6) Sec. VBG pH 7.349 (7.320-7.420) Sodium (137-145) mmol/L Potassium (3.6-5.0) mmol/L Chloride (98-107) mmol/L Carbon Dioxide (22-30) mmol/L Anion Gap mmol/L BUN (7-17) mg/dL Creatinine (0.6-1.2) mg/dL Estimated GFR ml/min BUN/Creatinine Ratio % Glucose (65-100) mg/dL Lactic Acid (0.7-2.0) mmol/L Calcium (8.4-10.2) mg/dL Magnesium (1.7-2.3) mg/dL Total Bilirubin (0.1-1.2) mg/dL AST (5-40) units/L ALT (7-56) units/L Alkaline Phosphatase (35-129) units/L Ammonia (25-60) umol/L Total Creatine Kinase (30-135) units/L Troponin T (0.00-0.029) ng/mL Total Protein (6.3-8.2) g/dL Albumin (3.9-5) g/dL Albumin/Globulin Ratio % Salicylates (2.8-20.0) mg/dL Acetaminophen (10.0-30.0) ug/mL Plasma/Serum Alcohol (0-0.07) % - EKG Data -: EKG Interpreted by Md - EKG Data 02/08/21 15:51 EKG interpreted at 15: 44 This is an atrial paced rhythm, rate 85 bpm, with a left axis deviation, left ventricular hypertrophy, poor R wave progression, QTC prolonged, minimal motion artifact. There is good capture. This is not a STEMI. When compared to prior EKG from February 2020, atrial paced complexes appear to be new. Left ventricular hypertrophy is chronic. - Radiology Data Radiology results: pending, report reviewed, image reviewed [facility] [address] [place] [address] X Ray Report Signed Patient: YESIKA PHAN MR#: [id number] : 1935 Acct:[id number] Age/Sex: 85 / F ADM Date: 02/08/21 Loc: ED Attending Dr: Ordering Physician: LAURENCE ANGEL MD Date of Service: 02/08/21 Procedure(s): XR chest 1V ap Accession Number(s): [id number] cc: LAURENCE ANGEL MD Fluoro Time In Minutes: XR chest 1V ap INDICATION / CLINICAL INFORMATION: Altered Mental Status COMPARISON: 12/22/2019 FINDINGS: SUPPORT DEVICES: Transvenous left AICD. HEART / MEDIASTINUM: No significant abnormality. LUNGS / PLEURA: Left basilar atelectasis and/or scarring. Otherwise lungs are clear. Costophrenic sulci are sharp. No pneumothorax. ADDITIONAL FINDINGS: No significant additional findings. IMPRESSION: 1. No acute findings. Signer Name: Luis Manuel Jorgensen MD Signed: 02/08/2021 3:29 PM Workstation Name: [id number] Transcribed By: CS Dictated By: Luis Manuel Jorgensen MD Electronically Authenticated By: Luis Manuel Jorgensen MD Signed Date/Time: 02/08/211528 DD/ 28 Critical care attestation.: If time is entered above; I have spent that time in minutes in the direct care of this critically ill patient, excluding procedure time. ED Disposition Clinical Impression: Unresponsiveness, Implantable cardioverter-defibrillator (ICD) in situ, Urinary tract infection Altered mental status Qualifiers: Altered mental status type: transient alteration of awareness Qualified Code(s): R40.4 - Transient alteration of awareness Disposition: DC-09 OP ADMIT IP TO THIS HOSP Is pt being admited?: Yes Does the pt Need Aspirin: Yes Condition: Fair - Assessment Assessment Interval: Baseline - Level of Consciousness 1a. Level of Consciousness: arousable/minor stimuli - LOC Questions 1b. LOC Questions: answers 1 question correctly - LOC Command 1c. LOC Commands: performs tasks correctly - Best Gaze 2. Best Gaze: normal - Visual 3. Visual: no visual loss - Facial Palsy 4. Facial Palsy: normal symmetrical movement - Motor Arm 5a. Motor Arm Left: no drift 5b. Motor Arm Right: no drift - Motor Leg 6a. Motor Leg Left: no drift 6b. Motor Leg Right: no drift - Limb Ataxia 7. Limb Ataxia: absent - Sensory 8. Sensory: normal - Best Language 9. Best Language: no aphasia - Dysarthria 10. Dysarthria: normal - Extinction and Inattention 11. Extinction/Inattention: visual/tactile inattention - Scoring Total Score: 3 Stroke Severity: Minor Stroke
--- NOTE | 2021-02-08 15:33 | XRay Report ---
XR chest 1V ap INDICATION / CLINICAL INFORMATION: Altered Mental Status COMPARISON: 12/22/2019 FINDINGS: SUPPORT DEVICES: Transvenous left AICD. HEART / MEDIASTINUM: No significant abnormality. LUNGS / PLEURA: Left basilar atelectasis and/or scarring. Otherwise lungs are clear. Costophrenic sul ci are sharp. No pneumothorax. ADDITIONAL FINDINGS: No significant additional findings. IMPRESSION: 1. No acute findings. Signer Name: Luis Manuel Jorgensen MD Signed: 02/08/2021 3:29 PM Workstation Name: [id number]
--- NOTE | 2021-02-08 16:02 | Consultation ---
History of Present Illness - Reason for Consult Consult date: 02/08/21 - History of Present Illness [facility] Consult Note # Demographics Consult Type: Acute Stroke Level 1 (0-4.5 hrs) Patient Location: Emergency Room First Name: pablo emanuel Last Name: analy Date of : 1935 Age: 85 Gender: Female Time of Initial Page (Eastern Time): 02/08/2021, 15:43 Time of Return Call (Eastern Time): 02/08/2021, 15:43 # HPI History: 85yo woman who presents with altered mentation. Family was not able to fully clarify time LKN. She was LKN at 9AM. She was found by family in bed and was poorly responsive. EMS arrived and transported her to the ED. She then did improve while in the ED but still remains confused. # Scores Level of Consciousness 1a: [1] = Not alert; but arousable by minor stim LOC Questions 1b: [2] = Answers neither correctly LOC Commands 1c: [0] = Performs both tasks correctly Best Gaze 2: [0] = Normal Visual 3: [0] = No visual loss Facial Palsy 4: [0] = Normal symmetrical movements Motor Arm Left 5a: [1] = Drift Motor Arm Right 5b: [1] = Drift Motor Leg Left 6a: [3] = No effort against gravity Motor Leg Right 6b: [3] = No effort against gravity Limb Ataxia 7: [0] = Absent Sensory 8: [0] = Normal Best Language 9: [0] = No aphasia Dysarthria 10: [1] = [id number] dysarthria Extinction and Inattention 11: [0] = No abnormality NIHSS Total: 12 # Exam Vitals: vital signs reviewed SBP: 183 DBP: 93 # PMH-FH-SH Past Medical History: coronary artery disease, chronic kidney disease, dementia, Diabetes # Data Glucose: [address]: no bleed # Assessment Impression: Altered Mental Status, less likely stroke # Plan Thrombolytic/Intervention: NOT IV Thrombolytic or IA Intervention Thrombolytic Exclusion (< 3 hour window): time of onset unclear Intraarterial Exclusion: clinically not consistent with stroke Labs: Ammonia, B12, comprehensive metabolic panel, ESR, liver function tests, TSH, urine drug screen, ua Other: I have discussed my recommendations with the referring provider Additional Recommendations: 1. if no cause found of altered mentation and not improving, would check MRI brain tomorrow Disposition: admit Medications and Allergies Allergies Allergy/AdvReac Type Severity Reaction Status Date / Time No Known Drug Allergies Allergy Unknown Verified 12/22/19 23:03 Home Medications Medication Instructions Recorded Confirmed Last Taken Type AtorvaSTATin 40 mg PO DAILY 12/23/19 03/04/20 Unknown History Isosorbide Mononitrate 30 mg PO DAILY 12/23/19 03/04/20 Unknown History carvediloL 6.25 mg PO BID 12/23/19 03/04/20 Unknown History Apixaban [Eliquis] 2.5 mg PO BID #60 tablet 03/06/20 Unknown Rx Exam - Constitutional Vitals: Temp Pulse Resp BP Pulse Ox 98 F 91 H 15 193/93 99 02/08/21 15:25 02/08/21 15:25 02/08/21 15:25 02/08/21 15:25 02/08/21 15:25
[2021-02-08 16:05] LABS: Eosinophils # (Auto) 0.2 K/mm3 (0.0-0.4); Eosinophils % (Auto) 5.7 % (0.0-4.3); Hematocrit 32.9 % (30.3-42.9); Hemoglobin 10.9 gm/dl (10.1-14.3); Lymphocytes # (Auto) 1.5 K/mm3 (1.2-5.4); Lymphocytes % (Auto) 40.3 % (13.4-35.0); Mean Corpuscular HGB Conc 33 % (30-34); Mean Corpuscular Volume 93 fl (79-97); Monocytes # (Auto) 0.4 K/mm3 (0.0-0.8); Monocytes % (Auto) 10.5 % (0.0-7.3); Platelet Count 221 K/mm3 (140-440); Red Blood Count 3.54 M/mm3 (3.65-5.03); Red Cell Distribution Width 14.2 % (13.2-15.2)
[2021-02-08 16:14] LABS: INR 1.45 (0.87-1.13)
[2021-02-08 16:15] LABS: Partial Thromboplastin Time 34.1 Sec. (24.2-36.6)
[2021-02-08 16:28] LABS: Alanine Aminotransferase 23 units/L (7-56); Albumin 2.6 g/dL (3.9-5); BUN/Creatinine Ratio 19; Blood Urea Nitrogen 17 mg/dL (7-17); Calcium 9.1 mg/dL (8.4-10.2); Hemolysis Index 17
--- NOTE | 2021-02-08 16:44 | Cat Scan Report ---
"CT BRAIN: 02/08/2021 INDICATION / CLINICAL INFORMATION: Altered Mental Status. COMPARISON: 03/04/2020 FINDINGS: BRAIN/INTRACRANIAL STRUCTURES: Unenhanced CT images of the brain demonstrate no evidence of acute abn ormality. Ventricles and sulci are prominent in size, consistent with age-related atrophic change. Chronic white matter hypoattenuation is present. There is no evidence of acute large vessel territory ischemic injury, hemorrhage, or mass. There are no abnormal extra-axial fluid collections. Atherosclerotic vascular calcifications are present in the distal internal carotid arteries and verte bral arteries. EXTRACRANIAL STRUCTURES: Unremarkable. IMPRESSION: No acute abnormality. Chronic and age-related changes. No significant change when compared to 03/04/2020. |} Signer Name: Luis Marr MD Signed: 02/08/2021 4:39 PM Workstation Name: [id number]"
[2021-02-08] MEDS ORDERED: ASPIRIN 81 MG TAB CHEW PO ONE (16:59)
[2021-02-08] MEDS ORDERED: ACETAMINOPHEN 325 MG TAB PO PRN (17:02)
[2021-02-08] MEDS ORDERED: ONDANSETRON 4 MG/2 ML INJ IV PRN (17:02)
--- NOTE | 2021-02-08 17:05 | History and Physical Report ---
History of Present Illness Chief complaint: Unresponsive History of present illness: 85 YO Female with HTN, DM, HLD, Alzheimers Dementia, Severe Malnutrition, [place], CAD currently on therapeutic anticoagulation presents to ED for evaluation. Patient is lethargic with diminished cognition at the time of my evaluation and is unable to provide history. Patient history taken from EMS staff, ED staff, as well as the patient's family who was available by telephone. As per family the patient was found to be confused this morning. EMS was notified and upon arrival the patient was found to be in distress and subsequently transported to [facility] for further care and evaluation of the aforementioned symptoms. The patient was seen and evaluated in the emergency department. All lab and imaging studies reviewed. The patient was found to have metabolic encephalopathy suspected secondary to urinary tract infection. Patient also found to have volume depletion, as well as uncontrolled hypertension. Patient has been noncompliant with oral antihypertensive medication due to encephalopathy. Patient treated with IV fluid resuscitation therapy, as well as IV antibiotic therapy. Patient admitted to medical floor due to increased risk of worsening symptoms. Patient is confused with diminished cognition but has a positive gag reflex and is able to protect her airway at this time. No further history is obtainable. Patient family denies fever, chills, chest pain, palpitation, productive cough, skin rash, recent ill contacts, or known exposure to COVID-19. Prior admission on 03/04/2020 reviewed. All medication listed at time of admission has been reconciled. Advanced care planning conducted in ED. Past History Past Medical History: diabetes, hypertension, hyperlipidemia, other (See HPI) Past Surgical History: total hip replacement Social history: . denies: smoking, alcohol abuse Family history: diabetes, hypertension Medications and Allergies Allergies Allergy/AdvReac Type Severity Reaction Status Date / Time No Known Drug Allergies Allergy Unknown Verified 12/22/19 23:03 Home Medications Medication Instructions Recorded Confirmed Last Taken Type AtorvaSTATin 40 mg PO DAILY 12/23/19 03/04/20 Unknown History Isosorbide Mononitrate 30 mg PO DAILY 12/23/19 03/04/20 Unknown History carvediloL 6.25 mg PO BID 12/23/19 03/04/20 Unknown History Apixaban [Eliquis] 2.5 mg PO BID #60 tablet 03/06/20 Unknown Rx Active Meds: Active Medications Acetaminophen (Acetaminophen 325 Mg Tab) 650 mg PO Q4H PRN PRN Reason: Pain MILD(1-3)/Fever >100.5/ROMAN Sodium Chloride (Nacl 0.9% 1000 Ml) 1,000 mls @ 75 mls/hr IV DIRECT JOEL Miscellaneous Medication (Apixaban) 2.5 mg PO BID [facility] Miscellaneous Medication (Atorvastatin) 40 mg PO DAILY JOEL Miscellaneous Medication (Isosorbide Mononitrate) 30 mg PO DAILY JOEL Miscellaneous Medication (Carvedilol) 6.25 mg PO BID JOEL Ondansetron HCl (Ondansetron 4 Mg/2 Ml Inj) 4 mg IV Q8H PRN PRN Reason: Nausea And Vomiting Sodium Chloride (Sodium Chloride 0.9% 10 Ml Flush Syringe) 10 ml IV BID JOEL Sodium Chloride (Sodium Chloride 0.9% 10 Ml Flush Syringe) 10 ml IV PRN PRN PRN Reason: LINE FLUSH Review of Systems ROS unobtainable: due to mental status Exam - Constitutional Vitals: Temp Pulse Resp BP Pulse Ox 98 F 91 H 15 193/93 99 02/08/21 15:25 02/08/21 15:25 02/08/21 15:25 02/08/21 15:25 02/08/21 15:25 General appearance: Present: mild distress - EENT Eyes: Present: PERRL ENT: hearing intact, hearing decreased, other (Dry oral mucosa) - Neck Neck: Present: supple, normal ROM - Respiratory Respiratory effort: normal Respiratory: bilateral: CTA - Cardiovascular Heart Sounds: Present: S1 & S2. Absent: rub, click - Extremities Extremities: pulses symmetrical, No edema Peripheral Pulses: within normal limits - Abdominal General gastrointestinal: Present: soft, non-tender, non-distended - Integumentary Integumentary: Present: clear, dry, clammy, decreased turgor - Musculoskeletal Musculoskeletal: generalized weakness - Psychiatric Psychiatric: no intact judgment & insight, no memory intact - Neurologic Neurologic: CNII-XII intact, no focal deficits, moves all extremities, no gait normal HEART Score - HEART Score Troponin: Troponin T < 0.010 ng/mL (0.00-0.029) 02/08/21 15:44 Results - Labs CBC & Chem 7: 02/08/21 15:44 02/08/21 15:44 Labs: Abnormal lab results 02/08/21 02/08/2121 Range/Units 15:44 15:44 15:44 WBC 3.8 L (4.5-11.0) K/mm3 RBC 3.54 L (3.65-5.03) M/mm3 Lymph % (Auto) 40.3 H (13.4-35.0) % [place] % (Auto) 10.5 H (0.0-7.3) % Eos % (Auto) 5.7 H (0.0-4.3) % Seg Neutrophils # 1.6 L (1.8-7.7) K/mm3 PT 17.5 H (12.2-14.9) Sec. INR 1.45 H (0.87-1.13) Albumin 2.6 L (3.9-5) g/dL Salicylates (2.8-20.0) mg/dL Acetaminophen (10.0-30.0) ug/mL 02/08/21 02/08/21 Range/Units 15:44 15:44 WBC (4.5-11.0) K/mm3 RBC (3.65-5.03) M/mm3 Lymph % (Auto) (13.4-35.0) % [place] % (Auto) (0.0-7.3) % Eos % (Auto) (0.0-4.3) % Seg Neutrophils # (1.8-7.7) K/mm3 PT (12.2-14.9) Sec. INR (0.87-1.13) Albumin (3.9-5) g/dL Salicylates < 0.3 L (2.8-20.0) mg/dL Acetaminophen 5.0 L (10.0-30.0) ug/mL Assessment and Plan - Patient Problems (1) Urinary tract infection Current Visit: Yes Status: Acute Qualifiers: Encounter type: initial encounter Plan to address problem: CBC, CMP, urinalysis, IV antibiotic therapy, supportive care. (2) Metabolic encephalopathy Current Visit: Yes Status: Acute Plan to address problem: CT scan head, neuro check, seizure precautions, aspiration precautions, fall precautions, supportive care. (3) Volume depletion Current Visit: Yes Status: Acute (4) Uncontrolled hypertension Current Visit: Yes Status: Acute Plan to address problem: Monitor blood pressure every shift, continue medical management, resume prehospital antihypertensive therapy. (5) DVT prophylaxis Current Visit: Yes Status: Acute Plan to address problem: SCD to bilateral lower extremities while in bed, continue therapeutic anticoagulation. (6) Advance care planning Current Visit: Yes Status: Acute Plan to address problem: Disease education conducted, care plan discussed, diagnoses discussed, prognosis discussed, patient is full code, patient family knowledge understanding and agreement with care plan, +30 minutes.
[2021-02-08 17:44] LABS: Amphetamine Screen,Urine Negative; Benzodiazepines Screen,Urine Negative; Cocaine Screen,Urine Negative; Methadone Screen,Urine Negative; Opiate Screen,Urine Negative
[2021-02-08 17:54] LABS: Bacteria,Urine 1+ /HPF (Negative); Bilirubin,Urine NEG (Negative); Blood,Urine SM (Negative); Color,Urine Yellow (Yellow); Urobilinogen,Urine < 2.0 mg/dL (<2.0)
[2021-02-08] MEDS ORDERED: cefTRIAXone/NS 1 GM/50 ML 1 GM/50 ML BAG IV ONE (17:57)
[2021-02-08] MEDS ORDERED: SODIUM CHLORIDE 0.9% 1000 ML 1,000 ML IV SCH (17:58)
[2021-02-08 18:00] LABS: Cannabinoid Screen,Urine Positive
[2021-02-08] MEDS: carvediloL 6.25 MG TAB PO SCH (20:27)
[2021-02-08] MEDS: DEXTROSE 50% IN WATER (25GM) 50 ML SYRINGE IV PRN (21:30)
[2021-02-08] MEDS ORDERED: NON-FORMULARY EACH (Carvedilol 6.25 MG) PO SCH (22:00)
[2021-02-08] MEDS ORDERED: NON-FORMULARY EACH (Apixaban 2.5 MG Tablet) PO SCH (22:00)
[2021-02-08] MEDS: APIXABAN 2.5 MG TAB PO SCH (23:11)
[2021-02-08] MEDS: DEXTROSE 10% IN WATER 1,000 ML IV SCH (23:23)
[2021-02-09] MEDS: carvediloL 6.25 MG TAB PO SCH ×3 (03:40→21:10)
[2021-02-09] MEDS: DEXTROSE 50% IN WATER (25GM) 50 ML SYRINGE IV PRN (04:42)
[2021-02-09] MEDS: hydrALAZINE 20 MG/1 ML INJ IV PRN ×2 (06:25→11:08)
[2021-02-09 08:13] LABS: BUN/Creatinine Ratio 18; Blood Urea Nitrogen 14 mg/dL (7-17); Calcium 8.6 mg/dL (8.4-10.2); Hemolysis Index 26
--- NOTE | 2021-02-09 09:03 | Progress Note ---
Assessment and Plan Assessment and plan: Sepsis. Patient meets criteria given the tachycardia, leukopenia and diagnosis of UTI. UTI. Toxic metabolic encephalopathy. Accelerated hypertension. 02/09/2021. We will continue IV antibiotics and follow-up blood and urine cultures. Continue to treat underlying causes for the encephalopathy. Continue home antihypertensive medications. History Interval history: No new issues overnight. Hospitalist Physical - Constitutional Vitals: Temp Pulse Resp BP Pulse Ox 98 F 91 H 16 162/74 100 02/09/21 04:29 02/09/21 06:25 02/09/21 04:29 02/09/21 06:25 02/09/21 04:29 General appearance: Present: no acute distress - EENT Eyes: Present: PERRL, EOM intact ENT: hearing intact, clear oral mucosa, dentition normal - Neck Neck: Present: supple, normal ROM - Respiratory Respiratory effort: normal Respiratory: bilateral: CTA - Cardiovascular Rhythm: regular Heart Sounds: Present: S1 & S2. Absent: gallop, rub - Extremities Extremities: no ischemia, No edema, Full ROM - Abdominal General gastrointestinal: soft, non-tender, non-distended, normal bowel sounds - Integumentary Integumentary: Present: clear, warm, dry - Neurologic Neurologic: CNII-XII intact, moves all extremities HEART Score - HEART Score Troponin: Troponin T < 0.010 ng/mL (0.00-0.029) 02/08/21 15:44 Results - Labs CBC & Chem 7: 02/08/21 15:44 02/09/21 07:27 Labs: Laboratory Last Values WBC 3.8 K/mm3 (4.5-11.0) L 02/08/21 15:44 RBC 3.54 M/mm3 (3.65-5.03) L 02/08/21 15:44 Hgb 10.9 gm/dl (10.1-14.3) 02/08/21 15:44 Hct 32.9 % (30.3-42.9) 02/08/21 15:44 MCV 93 fl (79-97) 02/08/21 15:44 MCH 31 pg (28-32) 02/08/21 15:44 MCHC 33 % (30-34) 02/08/21 15:44 RDW 14.2 % (13.2-15.2) 02/08/21 15:44 Plt Count 221 K/mm3 (140-440) 02/08/21 15:44 Lymph % (Auto) 40.3 % (13.4-35.0) H 02/08/21 15:44 [place] % (Auto) 10.5 % (0.0-7.3) H 02/08/21 15:44 Eos % (Auto) 5.7 % (0.0-4.3) H 02/08/21 15:44 Baso % (Auto) 1.0 % (0.0-1.8) 02/08/21 15:44 Lymph # (Auto) 1.5 K/mm3 (1.2-5.4) 02/08/21 15:44 [place] # (Auto) 0.4 K/mm3 (0.0-0.8) 02/08/21 15:44 Eos # (Auto) 0.2 K/mm3 (0.0-0.4) 02/08/21 15:44 Baso # (Auto) 0.0 K/mm3 (0.0-0.1) 02/08/21 15:44 Seg Neutrophils % 42.5 % (40.0-70.0) 02/08/21 15:44 Seg Neutrophils # 1.6 K/mm3 (1.8-7.7) L 02/08/21 15:44 PT 17.5 Sec. (12.2-14.9) H 02/08/21 15:44 INR 1.45 (0.87-1.13) H 02/08/21 15:44 APTT 34.1 Sec. (24.2-36.6) 02/08/21 15:44 VBG pH 7.349 (7.320-7.420) 02/08/21 15:44 Sodium 140 mmol/L (137-145) 02/09/21 07:27 Potassium 4.2 mmol/L (3.6-5.0) 02/09/21 07:27 Chloride 105.8 mmol/L (98-107) 02/09/21 07:27 Carbon Dioxide 26 mmol/L (22-30) 02/09/21 07:27 Anion Gap 12 mmol/L 02/09/21 07:27 BUN 14 mg/dL (7-17) 02/09/21 07:27 Creatinine 0.8 mg/dL (0.6-1.2) 02/09/21 07:27 Estimated GFR > 60 ml/min 02/09/21 07:27 BUN/Creatinine Ratio 18 % 02/09/21 07:27 Glucose 140 mg/dL (65-100) H 02/09/21 07:27 POC Glucose 69 mg/dL (70-105) L 02/09/21 04:38 Lactic Acid 1.00 mmol/L (0.7-2.0) 02/08/21 15:44 Calcium 8.6 mg/dL (8.4-10.2) 02/09/21 07:27 Magnesium 2.00 mg/dL (1.7-2.3) 02/08/21 15:44 Total Bilirubin 0.30 mg/dL (0.1-1.2) 02/08/21 15:44 AST 28 units/L (5-40) 02/08/21 15:44 ALT 23 units/L (7-56) 02/08/21 15:44 Alkaline Phosphatase 108 units/L (35-129) 02/08/21 15:44 Ammonia 30.0 umol/L (25-60) 02/08/21 15:44 Total Creatine Kinase 35 units/L (30-135) 02/08/21 15:44 Troponin T < 0.010 ng/mL (0.00-0.029) 02/08/21 15:44 Total Protein 7.1 g/dL (6.3-8.2) 02/08/21 15:44 Albumin 2.6 g/dL (3.9-5) L 02/08/21 15:44 Albumin/Globulin Ratio 0.6 % 02/08/21 15:44 Vitamin B12 996.6 pg/mL (211-911) H 02/08/21 15:44 TSH 0.732 mlU/mL (0.270-4.200) 02/08/21 15:44 Urine Color Yellow (Yellow) 02/08/21 17:13 Urine Turbidity Clear (Clear) 02/08/21 17:13 Urine pH 7.0 (5.0-7.0) 02/08/21 17:13 Ur Specific [place] 1.008 (1.003-1.030) 02/08/21 17:13 Urine Protein 30 mg/dl mg/dL (Negative) 02/08/21 17:13 Urine Glucose (UA) Neg mg/dL (Negative) 02/08/21 17:13 Urine Ketones Neg mg/dL (Negative) 02/08/21 17:13 Urine Blood Sm (Negative) 02/08/21 17:13 Urine Nitrite Neg (Negative) 02/08/21 17:13 Urine Bilirubin Neg (Negative) 02/08/21 17:13 Urine Urobilinogen < 2.0 mg/dL (<2.0) 02/08/21 17:13 Ur Leukocyte Esterase Lg (Negative) 02/08/21 17:13 Urine WBC (Auto) 11.0 /HPF (0.0-6.0) H 02/08/21 17:13 Urine RBC (Auto) 1.0 /HPF (0.0-6.0) 02/08/21 17:13 U Epithel Cells (Auto) < 1.0 /HPF (0-13.0) 02/08/21 17:13 Urine Bacteria (Auto) 1+ /HPF (Negative) 02/08/21 17:13 Salicylates < 0.3 mg/dL (2.8-20.0) L 02/08/21 15:44 Urine Opiates Screen Negative 02/08/21 17:13 Urine Methadone Screen Negative 02/08/21 17:13 Acetaminophen 5.0 ug/mL (10.0-30.0) L 02/08/21 15:44 Ur Barbiturates Screen Negative 02/08/21 17:13 Ur Phencyclidine Scrn Negative 02/08/21 17:13 Ur Amphetamines Screen Negative 02/08/21 17:13 U Benzodiazepines Scrn Negative 02/08/21 17:13 Urine Cocaine Screen Negative 02/08/21 17:13 U Marijuana (THC) Screen Positive 02/08/21 17:13 Drugs of Abuse Note Disclamer 02/08/21 17:13 Plasma/Serum Alcohol < 0.01 % (0-0.07) 02/08/21 15:44 Microbiology: Microbiology 02/08/21 15:48 Peripheral/Venous Blood Culture - Preliminary Culture in Progress 02/08/21 15:44 Peripheral/Venous Blood Culture - Preliminary Culture in Progress Banks/IV: Voiding Method Diaper Active Medications - Current Medications Current Medications: Generic Name Dose Route Start Last Admin Trade Name Freq PRN Reason Stop Dose Admin Acetaminophen 650 mg 02/08/21 17:02 Acetaminophen 325 Mg Tab PO Q4H PRN Pain MILD(1-3)/Fever >100.5/ROMAN Apixaban 2.5 mg 02/08/21 22:00 02/08/21 23:11 Apixaban 2.5 Mg Tab PO Not Given BID [facility] Atorvastatin Calcium 40 mg 02/08/21 22:00 02/08/21 23:12 Atorvastatin 40 Mg Tab PO Not Given QHS [facility] Carvedilol 6.25 mg 02/08/21 22:00 02/09/21 03:40 Carvedilol 6.25 Mg Tab PO Not Given BID JOEL Dextrose 50 ml 02/08/21 21:33 02/09/21 04:42 Dextrose 50% In Water (25gm) 50 Ml Syringe IV 50 ml Q30MIN PRN Administration Hypoglycemia Protocol Hydralazine HCl 5 mg 02/09/21 06:04 02/09/21 06:25 Hydralazine 20 Mg/1 Ml Inj IV 5 mg Q4HR PRN Administration Hypertension Sodium Chloride 1,000 mls @ 75 mls/hr 02/08/21 17:58 Nacl 0.9% 1000 Ml IV DIRECT JOEL Ceftriaxone Sodium 1 gm in 50 mls @ 100 mls/hr 02/09/21 10:00 Rocephin/Ns 1 Gm/50 Ml IV Q24HR JOEL Protocol Dextrose 1,000 mls @ 42 mls/hr 02/08/21 22:00 02/08/21 23:23 D10w IV 42 mls/hr DIRECT JOEL Administration Isosorbide Mononitrate 30 mg 02/09/21 10:00 Isosorbide Mononitrate Er 30 Mg Tab PO DAILY JOEL Ondansetron HCl 4 mg 02/08/21 17:02 Ondansetron 4 Mg/2 Ml Inj IV Q8H PRN Nausea And Vomiting Sodium Chloride 10 ml 02/08/21 22:00 02/09/21 03:41 Sodium Chloride 0.9% 10 Ml Flush Syringe IV 10 ml BID JOEL Administration Sodium Chloride 10 ml 02/08/21 17:02 Sodium Chloride 0.9% 10 Ml Flush Syringe IV PRN PRN LINE FLUSH
[2021-02-09] MEDS ORDERED: NON-FORMULARY EACH (Atorvastatin 40 MG) PO SCH (10:00)
[2021-02-09] MEDS ORDERED: NON-FORMULARY EACH (Isosorbide Mononitrate 30 MG) PO SCH (10:00)
[2021-02-09] MEDS: APIXABAN 2.5 MG TAB PO SCH ×2 (11:09→21:10)
[2021-02-09] MEDS: cefTRIAXone/NS 1 GM/50 ML 1 GM/50 ML BAG IV SCH (11:09)
--- NOTE | 2021-02-09 12:07 | Electrocardiograph Report ---
[facility] [place] Test Date: 2021-02-08 Test Time: 15:44:06 Pat Name: YESIKA PHAN Department: Room: [facility] 1 Gender: F [employer] Installer: WILTON : 1935 Requested By: LAURENCE ANGEL Order Number: [id number] Reading MD: Malini Ortega Measurements Intervals [place] Rate: 85 P: [place]: 126 QRS: -36 QRSD: 115 T: 17 QT: 394 QTc: 469 Interpretive Statements Atrial-paced complexes Nonspecific IVCD with LAD Left ventricular hypertrophy No previous ECG available for comparison Electronically Signed On 02-09-2021 12:07:40 EDT by Malini Ortega
[2021-02-09] MEDS: DEXTROSE 10% IN WATER 1,000 ML IV SCH (16:30)
[2021-02-10] MEDS: INSULIN LISPRO 100 UNIT/ML SUB-Q SCH ×2 (08:36→13:07)
--- NOTE | 2021-02-10 09:14 | Discharge Summary ---
Providers - Providers Date of Admission: 02/08/21 17:02 Date of discharge: 02/10/21 Attending physician: SABRA RUBI 02/09/21 17:13 Physical Therapy Evaluation and Treat [CONS] Routine Comment: Debility, Assist w/ADLs Reason For Exam: Eval & Treat Primary care physician: CASINO RUNNER Hospitalization Reason for admission: sepsis, UTI Condition: Fair Hospital course: 85 YO Female with HTN, DM, HLD, Alzheimers Dementia, Severe Malnutrition, [place], CAD currently on therapeutic anticoagulation presents to ED for evaluation. Patient is lethargic with diminished cognition at the time of my evaluation and is unable to provide history. Patient history taken from EMS staff, ED staff, as well as the patient's family who was available by telephone. As per family the patient was found to be confused the morning prior to admission. Urinalysis revealed WBCs. However, urine drug screen also revealed marijuana. Patient denies any use of marijuana. Patient was admitted with diagnosis of toxic metabolic encephalopathy secondary to sepsis UTI and potentially marijuana. Patient's mental status returned back to baseline less than 24 hours after admission. Patient was treated with IV antibiotics with significant improvement. Blood cultures were found to be negative but urine culture revealed gram- negative christine. Patient was initially treated with Rocephin and will be discharged with Ceftin 500 mg p.o. twice daily x5 days. Dedicated discharge time 35 minutes Disposition: DC-01 TO HOME OR SELFCARE Final Discharge Diagnosis (Prints w/discharge instructions): Sepsis, UTI, toxic metabolic encephalopathy Core Measure Documentation - Palliative Care Palliative Care/ Comfort Measures: Not Applicable - Core Measures Any of the following diagnoses?: none Exam - Constitutional Vitals: Temp Pulse Resp BP Pulse Ox 97.5 F L 84 18 130/59 100 02/10/21 06:05 02/10/21 06:05 02/10/21 06:05 02/10/21 06:05 02/10/21 06:05 General appearance: Present: no acute distress, well-nourished - EENT Eyes: Present: PERRL ENT: hearing intact, clear oral mucosa - Neck Neck: Present: supple, normal ROM - Respiratory Respiratory effort: normal Respiratory: bilateral: CTA - Cardiovascular Heart Sounds: Present: S1 & S2. Absent: rub, click - Extremities Extremities: pulses symmetrical, No edema Peripheral Pulses: within normal limits - Abdominal General gastrointestinal: Present: soft, non-tender, non-distended, normal bowel sounds Female genitourinary: Present: normal - Integumentary Integumentary: Present: clear, warm, dry - Musculoskeletal Musculoskeletal: gait normal, strength equal bilaterally - Psychiatric Psychiatric: appropriate mood/affect, intact judgment & insight - Neurologic Neurologic: CNII-XII intact, moves all extremities Plan Activity: advance as tolerated Weight Bearing Status: Weight Bear as Tolerated Diet: regular Follow up with: PRIMARY CARE, [Primary Care Provider] - 3-5 Days Prescriptions: Cefuroxime Axetil [Ceftin] 500 mg PO Q12H #10 ml
[2021-02-10] MEDS: carvediloL 6.25 MG TAB PO SCH (09:29)
[2021-02-10] MEDS: APIXABAN 2.5 MG TAB PO SCH (09:29)
[2021-02-10] MEDS: cefTRIAXone/NS 1 GM/50 ML 1 GM/50 ML BAG IV SCH (09:30)
[2021-02-10 18:40] VITALS: BP 138/70
== END 2021-02-10 17:58 | disposition home health service (06) | DRG 871 ==
LOC: ED 14:59 → 3A 17:02 → OBSVTOIN 17:02
PROVIDERS: ADMIT Internal Medicine; ATTEND Hospitalist
DX: A41.9 Sepsis, unspecified organism (principal); G92 Toxic encephalopathy; E43 Unspecified severe protein-calorie malnutrition; N39.0 Urinary tract infection, site not specified; Z68.1 Body mass index [BMI] 19.9 or less, adult; E86.9 Volume depletion, unspecified; I10 Essential (primary) hypertension; E11.9 Type 2 diabetes mellitus without complications; E78.5 Hyperlipidemia, unspecified; Z96.642 Presence of left artificial hip joint; I25.10 Atherosclerotic heart disease of native coronary artery without angina pectoris; G30.9 Alzheimer's disease, unspecified; F02.80 Dementia in other diseases classified elsewhere, unspecified severity, without behavioral disturbance, psychotic disturbance, mood disturbance, and anxiety; I25.2 Old myocardial infarction; Z83.3 Family history of diabetes mellitus; Z82.49 Family history of ischemic heart disease and other diseases of the circulatory system
CPT/HCPCS: 36415; 70450; 71045; 80048; 80053; 80307; 80320; 81001; 82140; 82550; 82607; 82805; 82947; 82962; 83735; 84443; 84484; 85025; 85610; 85730; 87040; 87076; 87086; 87186; 93005; 96365; G0378; A9270-GY; G0480; J0360; J0696